=== PATIENT | male | born 1960 | race Caucasian/White ===

== ENCOUNTER 2016-12-17 08:44 | Day surgery (SDC) | payer OTHER ==
[~2016-12-17] VITALS: Ht 191.8 cm; Wt 114.0 kg
[~2016-12-17 08:44] MED LIST: 0.9% Sodium Chloride 1,000 ML IV SCH; AMLO10TA3 PO; AZIT500T5 PO; LEVO75TA4 PO; OMEP40CA36 PO; SIMV20TA4 PO; Sodium Chloride LOK Flush 10 mL Syringe IV PRN; fentaNYL-PF 50 mCg/mL 2 mL Inj IVPUSH PRN
[2016-12-17 09:11] VITALS: BP 140/88; PULSE 70; RESP 16; O2SAT 100
[2016-12-17] MEDS ORDERED: HYDR25TA4 PO (09:14)
[2016-12-17] MEDS ORDERED: NUGENIX PO (09:26)
[2016-12-17] MEDS ORDERED: MULT1CAP33 PO (09:26)
[2016-12-17] MEDS ORDERED: VIT1CAPS27 PO (09:26)
[2016-12-17 10:32] VITALS: BP 151/93; PULSE 66; RESP 14; O2SAT 97
[2016-12-17 10:42] VITALS: BP 136/82; PULSE 70; RESP 14; O2SAT 96
--- NOTE | 2016-12-17 14:20 | ENDO ---
[address] [address] ENDOSCOPY PROCEDURE PATIENT: HARVEY GARNER : 1960 MR#: [id number] ADMIT: 12/17/2016 JOB ID: [id number] PROCEDURE: Colonoscopy. INDICATION: Screening. ANESTHESIA: Patient's ASA classification is two. Mallampati score is two. MEDICATIONS: Versed 5 mg and fentanyl 100 mcg. INSTRUMENT USED: [id number]. PREPARATION QUALITY: Good. PROCEDURE DETAILS: After informed consent was obtained, the patient was brought to the GI suite, where he was placed on oxygen via nasal cannula and monitored with continuous pulse oximeter, telemetry, and blood pressure monitoring. A time-out was performed, then he was placed in the left lateral decubitus position and medications were administered for sedation. Digital rectal exam was performed, with palpation of the prostate, which was unremarkable. The colonoscope was then inserted into the rectum and advanced under direct visualization to the cecum, which was identified by the presence of the ileocecal valve and appendiceal orifice. Once the cecum was reached, the colonoscope was then withdrawn back into the rectum as the mucosa and lumen were examined. In the rectum, retroflexion was performed. Following retroflexion, the remaining air in the rectum was suctioned and the procedure was completed. FINDINGS: 1. In the descending colon, there were four diminutive polyps that were removed with cold biopsy forceps. 2. In the rectum, in the distal portion, there was a diminutive polyp that was removed cold biopsy forceps. IMPRESSION: 1. Four descending colon polyps. 2. Rectal polyp. RECOMMENDATIONS: 1. Repeat colonoscopy pending polyp pathology results. 2. Follow up in GI Clinic as needed. COMPLICATIONS: None. ESTIMATED BLOOD LOSS: Zero.
--- NOTE | 2016-12-21 15:13 | PATH ---
SURGICAL PATHOLOGY Attending Physician:Amanda Hope CASE STATUS: Signed Out PATIENT NAME: HARVEY GARNER PID: [id number] : 1960 DATE COLLECTED:12/17/2016 16:56 SPECIMEN: 1: Colon, Biopsy 2: Rectum, Biopsy CLINICAL HISTORY: 1). DESCENDING POLYP 2). RECTAL POLYP FINAL DIAGNOSIS: 1.DESCENDING COLON POLYP: POLYPOID-SHAPED FRAGMENTS OF COLON MUCOSA CONSISTENT WITH MUCOSAL POLYPOID REDUNDANCY. NEGATIVE FOR DYSPLASIA AND MALIGNANCY. 2.RECTAL POLYP. HYPERPLASTIC POLYP. ICD10 CODE K62.1 GROSS DESCRIPTION: The specimen is received in two formalin filled containers labeled with the patient's name. 1). The specimen is sublabeled "and consists of 5 portions of tissue which aggregate to 0.3 x 0.3 x 0.2 CM. The specimen is entirely submitted in cassette 1A. 2). The specimen is sublabeled "rectal polyp" and consists of a 0.3 x 0.3 x 0.2 CM portion of tissue which is entirely submitted in cassette 2A. 12/17/2016 DAC MICRO DESCRIPTION: See diagnosis. ICD-9 CODES: CPT CODES: 1: 15071 2: 61674 Electronically Signed Out Josiah Ramirez MD [facility] Pathology [facility] [address], [place] [address] Technical component performed at [facility], [facility] [address], [place], [address]
== END 2016-12-17 23:59 | disposition home or self-care (01) ==
LOC: END 08:44
PROVIDERS: ATTEND Internal Medicine Gastroenterology
DX: Z12.11 Encounter for screening for malignant neoplasm of colon (principal); K63.5 Polyp of colon; K62.1 Rectal polyp; Z79.899 Other long term (current) drug therapy; Z87.891 Personal history of nicotine dependence
CPT/HCPCS: 45380; G0500; J2250; J3010; J7030